=== PATIENT | female | born 1975 ===

== ENCOUNTER 2017-02-07 07:05 | Emergency (ER) | payer OTHER ==
--- NOTE | 2017-02-07 07:40 | C.PDOC ---
History Of Present Illness 42-year-old female, PMHx includes Hypertension, presents to the emergency department with complaints of anterior neck pain x3 months. Patient notes that there is a bump on her neck, which is more painful with movement. No throat swelling or pain w/ swallowing. Patient has not had a prior evaluation for these symptoms, but was seen by her PMD a few months ago. Patient denies nausea/ vomiting, diaphoresis, weight loss, shortness of breath, palpitations, or any other associated symptoms. . Time Seen by Provider: 02/07/17 07:18 Chief Complaint (Nursing): ENT Problem History Per: Patient, Family, Plant Guard History/Exam Limitations: Language Barrier Onset/Duration Of Symptoms: Days Current Symptoms Are (Timing): Still Present Past Medical History Reviewed: Historical Data, Nursing Documentation, Vital Signs Vital Signs: Last Vital Signs Temp 97.8 F 02/07/17 11:10 Pulse 64 02/07/17 11:10 Resp 16 02/07/17 11:10 BP 118/82 02/07/17 11:10 Pulse Ox 99 02/07/17 11:10 - Medical History PMH: HTN Family History: States: Unknown Family Hx - Social History Hx Alcohol Use: No Hx Substance Use: No - Immunization History Hx Tetanus Toxoid Vaccination: No Hx Influenza Vaccination: No Hx Pneumococcal Vaccination: No Review Of Systems Except As Marked, All Systems Reviewed And Found Negative. Constitutional: Negative for: Fever, Chills, Sweats, Weakness, Malaise, Weight loss Cardiovascular: Negative for: Chest Pain, Palpitations Respiratory: Negative for: Cough, Shortness of Breath Gastrointestinal: Negative for: Nausea, Vomiting Musculoskeletal: Positive for: Neck Pain. Negative for: Back Pain Skin: Negative for: Rash Neurological: Negative for: Weakness, Numbness, Headache, Dizziness Physical Exam - Physical Exam Appears: Non-toxic, No Acute Distress Skin: Normal Color, Warm, Dry, No Rash Head: Atraumatic, Normacephalic Eye(s): bilateral: Normal Inspection, PERRL, EOMI Ear(s): Bilateral: Normal Nose: Normal Oral Mucosa: Moist Lips: Normal Appearing Throat: Normal, No Erythema, No Exudate, No Drooling Neck: Normal ROM, Supple, Other (Mild tenderness to left neck, no nodule felt. No erythema. No goiter. ) Chest: Symmetrical Cardiovascular: Rhythm Regular Respiratory: Normal Breath Sounds, No Accessory Muscle Use Extremity: Normal ROM Neurological/Psych: Oriented x3, Normal Speech ED Course And Treatment - Laboratory Results Result Diagrams: 02/07/17 08:15 02/07/17 08:15 O2 Sat by Pulse Oximetry: 97 Progress Note: DIscussed with pt results of work up in ED. Instructed immediate not indicated but strict follow up with PMD/ENT indicated. Instructed to return to ER if symptoms persist or worsen. CAse discussed with Dr Demarcus berrios evaluated labs and CT and agreed upon plan and discharge. Disposition - Disposition Referrals: [facility] at [facility] [Outside] Alistair Rojas MD [Staff Provider] - Disposition: HOME/ ROUTINE Disposition Time: 10:44 Condition: STABLE Additional Instructions: Vaya a garner mdico o la clnica en 2-5 dumas sin falta, para mas evaluacin. Volver a la johnathan de emergencia en cualquier momento si los sntomas persisten o empeoran. Instructions: Pharyngitis (ED) Print Language: MEXICAN - Clinical Impression Clinical Impression: Neck pain - Scribe Statement The provider has reviewed the documentation as recorded by the Scribe Antonino Trotter All medical record entries made by the Scribe were at my direction and personally dictated by me. I have reviewed the chart and agree that the record accurately reflects my personal performance of the history, physical exam, medical decision making, and the department course for this patient. I have also personally directed, reviewed, and agree with the discharge instructions and disposition.
[2017-02-07 08:20] LABS: BASO # 0.1 K/uL (0.0-0.2); BASO % 1.3 % (0.0-2.0); EOS # 0.2 K/uL (0.0-0.7); EOS % 2.9 % (0.0-4.0); HEMATOCRIT 42.4 % (34.0-47.0); LYMPH # 2.8 K/uL (1.0-4.3); LYMPH % 41.9 % (20.0-40.0); MEAN CELL VOLUME 82.9 fL (81.0-99.0); MEAN CORPUSCULAR HEMOGLOBIN 28.5 pg (27.0-31.0); MEAN CORPUSCULAR HGB CONC 34.4 g/dL (33.0-37.0); MEAN PLATELET VOLUME 9.2 fL (7.2-11.7); MONO # 0.7 K/uL (0.0-0.8); MONO % 10.5 % (0.0-10.0); NRBC % 0.1 % (0.0-2.0); WHITE BLOOD COUNT 6.8 K/uL (4.8-10.8)
[2017-02-07 08:23] LABS: URINE BILIRUBIN NEGATIVE (NEGATIVE); URINE BLOOD NEGATIVE (NEGATIVE); URINE COLOR Straw (YELLOW); URINE GLUCOSE (UA) NORMAL (Normal); URINE KETONE NEGATIVE (NEGATIVE); URINE LEUKOCYTE ESTERASE NEG Leu/uL (Negative); URINE PROTEIN NEGATIVE (NEGATIVE); URINE UROBILINOGEN NORMAL mg/dL (0.2-1.0); WBC URINE < 1 /hpf (0-5)
[2017-02-07 08:27] LABS: CHLORIDE 100 mmol/L (98-107); SODIUM 141 mmol/L (132-148)
[2017-02-07 08:30] LABS: ALB/GLOB RATIO 1.3 (1.0-2.1); ALKALINE PHOSPHATASE 117 U/L (38-126); AST/SGOT 29 U/L (14-36); BILIRUBIN,TOTAL 0.4 mg/dL (0.2-1.3); BLOOD UREA NITROGEN 13 mg/dL (7-17); CARBON DIOXIDE 30 mmol/L (22-30); GFR AFRICAN-AMERICAN > 60; GLUCOSE,RANDOM 96 mg/dL (65-105); TOTAL PROTEIN 8.1 g/dL (6.3-8.3)
[2017-02-07 08:31] LABS: ALT/SGPT 51 U/L (9-52); CALCIUM 9.4 mg/dl (8.6-10.4)
--- NOTE | 2017-02-07 08:55 | RAD ---
PROCEDURE: Radiographs of the neck (soft tissue). HISTORY: pain COMPARISON: None. TECHNIQUE: Frontal and Lateral Radiographs of the neck, optimized for soft tissue visualization. FINDINGS: SOFT TISSUES: Tracheal air column midline. Normal epiglottis. Normal retropharyngeal soft tissue width. No radiopaque foreign body. CERVICAL SPINE: Grossly unremarkable. OTHER FINDINGS: None. IMPRESSION: Unremarkable radiographs of the soft tissues of the neck.
[2017-02-07 08:56] LABS: FREE T4 1.04 ng/dL (0.78-2.19)
[2017-02-07 09:04] LABS: THYROID STIMULATING HORMONE 1.92 mIU/L (0.46-4.68)
[2017-02-07 09:10] LABS: THYROID STIMULATING HORMONE 1.9 mIU/L (0.46-4.68)
[2017-02-07] MEDS ORDERED: Iodixanol 320 MG/ML 100 ML BOTTLE IV ONE (09:33)
--- NOTE | 2017-02-07 10:38 | CT ---
PROCEDURE: CT NECK WITH CONTRAST HISTORY: pain - L COMPARISON: None TECHNIQUE: CT of the neck with intravenous contrast. Coronal and sagittal reformats generated. The examination was performed with a radiopaque cutaneous marker indicating the area of focal pain in the left side of the neck, at the level of the thyroid cartilage. Cannot rule Intravenous contrast dose: 100 mL Visipaque 320 Radiation dose: DLP 452.72 mGy-cm This CT exam was performed using one or more of the following dose reduction techniques: Automated exposure control, adjustment of the mA and/or kV according to patient size, and/or use of iterative reconstruction technique. FINDINGS: NASOPHARYNX: Unremarkable. SUPRAHYOID NECK: Oral cavity, parapharyngeal space and retropharyngeal soft tissues are unremarkable. There is asymmetric apposition of the left piriform sinus with a distended right piriform sinus on the same image. This is most likely artifactual but correlation with direct visual inspection is suggested. Unremarkable symmetric the loculated. Normal epiglottis. INFRAHYOID NECK: Unremarkable larynx, hypopharynx, and supraglottic space. Vocal cords intact. MASS: There is no mass or other abnormality corresponding to the region of focal pain as indicated by a radiopaque cutaneous marker in the left side of the neck. GLANDS: Parotid and submandibular glands unremarkable. Normal size thyroid gland, without nodule. LYMPH NODES: Shotty subcentimeter level 2 cervical lymph nodes identified incidentally. CERVICAL SPINE: Unremarkable VASCULAR STRUCTURES: Unremarkable. OTHER FINDINGS: None. IMPRESSION: Absent distension of the left piriform sinus incidentally. Likely artifactual but correlation with direct visual inspection is advised. No abnormality identified corresponding to the region of focal pain as indicated by a radiopaque cutaneous marker. Otherwise unremarkable examination.
[2017-02-07 11:12] VITALS: BP 118/82; PULSE 64; RESP 16; TEMP 97.8
[2017-02-07 12:27] VITALS: O2SAT 97
== END 2017-02-07 11:14 | disposition home or self-care (01) ==
LOC: C.ER 07:05
DX: M54.2 Cervicalgia (principal)
CPT/HCPCS: 70360; 70491; 80053; 81001; 84439; 84443; 84703; 85025; 99284; Q9967

== ENCOUNTER 2019-03-01 10:15 | Outpatient (CLI) | payer OTHER | END 2019-03-01 10:16 | disposition home or self-care (01) | LOC: C.DIABED 10:15 ==